=== PATIENT | male | born 1980 | race Caucasian/White ===

== ENCOUNTER 2016-08-05 12:58 | Emergency (ER) | payer SELFPAY ==
--- NOTE | ~2016-08-05 | CR211 ---
[facility]. [facility] A Service of [facility] RADIOLOGY TEXT RESULTS PATIENT: MELY SIBLEY LOCATION: SED : 80 UNIT #: [id number] AGE: [address]: Elena Castillo APRN SEX: M ORDER DR: [id number] [place] [id number] E MR#: [id number] Acc #: [id number] NAME: MELY SIBLEY : 1980 SEX: M STUDY DATE/TIME: 08/05/2016 13:28 UNIT: SED ROOM: STUDY DESCRIPTION: CR Ribs Uni 2 View W PA Ch Rt Attending Physician: Elena Castillo A.P.R.N. Ordering Physician: Elena Castillo A.P.R.N. MEDICAL IMAGING REPORT This report is preliminary unless electronic signature is present. EXAM Right rib series 08/05/2016 HISTORY Rib pain, chest pain, fell, right side ribs in tub last Sunday. FINDINGS AP radiograph of the chest is presented with AP and oblique views of the right ribs. No rib fracture is seen. The heart and mediastinum are normal in size and contour. The lungs are well inflated. No evidence of acute infectious or inflammatory disease, pleural effusion or pneumothorax. No suspicious nodule. Visualized abdomen unremarkable. Dictated by... Yossi Massey M.D. THIS IS AN ELECTRONICALLY VERIFIED REPORT Yossi Massey M.D. at 08/07/2016 4:24 PM SEBASTIAN/sriram TD: 08/06/2016 05:27 JOB #: [id number] MEDICAL IMAGING REPORT
== END 2016-08-05 14:55 | disposition home or self-care (01) ==
LOC: SED 12:58
DX: S20.212A Contusion of left front wall of thorax, initial encounter (principal); F17.210 Nicotine dependence, cigarettes, uncomplicated; W01.0XXA Fall on same level from slipping, tripping and stumbling without subsequent striking against object, initial encounter
CPT/HCPCS: 71101; 99283

== ENCOUNTER 2016-12-11 09:55 | Emergency (ER) | payer OTHER | END 2016-12-11 11:40 | disposition home or self-care (01) | LOC: SED 09:55 | DX: L23.7 Allergic contact dermatitis due to plants, except food (principal); F41.9 Anxiety disorder, unspecified; M19.90 Unspecified osteoarthritis, unspecified site; F17.210 Nicotine dependence, cigarettes, uncomplicated | CPT/HCPCS: 96372; 99282; J2930 ==

== ENCOUNTER 2017-02-08 09:43 | Emergency (ER) | payer SELFPAY ==
[2017-02-08] MEDS ORDERED: ASPIRIN81 MG PO (09:48)
== END 2017-02-08 10:29 | disposition home or self-care (01) ==
LOC: SED 09:43
DX: K02.9 Dental caries, unspecified (principal); M06.9 Rheumatoid arthritis, unspecified; F17.210 Nicotine dependence, cigarettes, uncomplicated; Z79.82 Long term (current) use of aspirin
CPT/HCPCS: 99283